=== PATIENT | male | born 1980 | race Caucasian/White ===

== ENCOUNTER 2025-06-23 21:08 | Emergency (ER) | payer OTHER ==
[~2025-06-23] VITALS: Ht 188 cm; Wt 116.2 kg
[2025-06-23 21:10] VITALS: BP 164/93; TEMP 98; O2SAT 99
[2025-06-23] MEDS: FLUORESCEIN OPHTH 1 MG STRIP OD ONE (21:20)
[2025-06-23] MEDS: PROPARACAINE 0.5% OPHTH SOL 15ML OD ONE (21:20)
[2025-06-23] MEDS ORDERED: ERYT5OIN25 OD (21:47)
[2025-06-23] MEDS: ERYTHROMYCIN OPHTH OINT OD ONE (21:50)
== END 2025-06-23 22:01 | disposition home or self-care (01) ==
LOC: M ED 21:08
DX: S05.01XA Injury of conjunctiva and corneal abrasion without foreign body, right eye, initial encounter (principal); X58.XXXA Exposure to other specified factors, initial encounter; Y92.009 Unspecified place in unspecified non-institutional (private) residence as the place of occurrence of the external cause; Y93.9 Activity, unspecified; Y99.9 Unspecified external cause status